=== PATIENT | female | born 1965 | race Caucasian/White ===

== ENCOUNTER 2023-01-26 10:28 | Outpatient (CLI) | payer OTHER, SELFPAY | END 2023-01-26 10:29 | disposition home or self-care (01) | LOC: NFLDREF 01-28 12:05 | PROVIDERS: PCP Family Medicine; Referring Provider Family Medicine; Visit Provider Obstetrics & Gynecology | DX: N39.0 Urinary tract infection, site not specified (principal) | CPT/HCPCS: 87086 ==

== ENCOUNTER 2023-04-13 09:51 | Day surgery (SDC) | payer OTHER, SELFPAY ==
[2023-04-13] VITALS (20 sets, daily range): BP systolic 95–134; BP diastolic 61–90; PULSE 44–90; RESP 14–20; TEMP 36.4–37.6; O2SAT 95–100; BMI 25.4
--- OUTSIDE RECORDS SUMMARY | 2023-04-13 09:58 | XMS_ITS | Clinical Summary ---
Author Name Unknown Organization [facility] Address [place], [place] [address] Care Team Providers Care Crane Manager Name Role Phone Sandrine Presley MD Primary Care Provider [phone] Allergies Active Allergy Reactions Criticality Noted Date Comments Apple (Fruit) Anaphylaxis High 09/09/2017 Soler Anaphylaxis High 09/09/2017 Medications Medication Sig Dispensed Refills Start Date End Date Status loratadine (CLARITIN) 10 mg tabletIndications:Se asonal allergic rhinitis due to pollen Take 1 tablet by mouth once daily 90 Tablet 0 08/04/2021 Active albuterol HFA (PRO-AIR; VENTOLIN; PROVENTIL) 90 mcg/actuation inhalerIndications:P ost-viral reactive airway disease Inhale 2 Puffs by mouth 4 times daily if needed for Shortness Of Breath. 1 Each 3 12/22/2022 Active traZODone (DESYREL) 50 mg tabletIndications:Sl eep pattern disturbance Take 1 Tablet (50 mg) by mouth at bedtime if needed for Sleep. 100 Tablet 3 12/22/2022 Active Active Problems Problem Noted Date Diagnosed Date Acquired absence of both cervix and uterus 12/22 Overview: Total hysterectomy for AUB and fibroids. Neck injury, subsequent encounter 10/01/2021 Lower back injury 10/01/2021 Colon polyp 05/19/2020 Overview: Colonoscopy 04/2020 polyp, repeat in 5 years Family history of colon cancer 05/19/2020 Overview: Colonoscopy 04/2020 polyp, repeat in 5 years Sleep pattern disturbance 11/28/2019 Seasonal allergic rhinitis due to pollen 020 Menorrhagia 05/17/2014 Deep vein thrombophlebitis of right leg 04/10/19 15 Resolved Problems Problem Noted Date Diagnosed Date Resolved Date Anticoagulation monitoring, INR range 2-3 04/11/2014 11/07/2014 Encounters Date Type Department Care Team Description 03/30/2023 11:45 AM SHALE PLANER OPERATOR Preop Visit [facility] [address] [facility] [place] [address] Kristina Talbert MD Pre-Op Exam (04/13 prolapse surgery, Dr. Gallardo at [facility]) 03/30/2023 Travel 01/17/2023 Telephone [facility] [address] [place] [address] Sandrine Presley MD Questions (Call Wanted ) from Last 3 Months Immunizations Name Administration Dates Next Due Influenza, IIV4 12/13/2017 Influenza, IIV4 (=>6mos) MDV 12/19/2018 Td (Age >=7 Years) 10/13/2004 Tdap 09/09/2017 Zoster (Shingrix-RZV, recombinant) 05/21/2022, Family History Medical History Relation Name Comments Good Health Brother Cancer-colon Father Other Maternal Grandfather Cancer-breast Maternal Grandmother COPD Mother Hypertension Mother Good Health Sister Blood Disease No Family History Relation Name Status Comments Brother Father (Age 58) of co radha cancer Maternal Grandfather Maternal Grandmother Mother Alive Sister Social History Tobacco Use Types Packs/Day Years Used Date Smoking Tobacco: Never Passive Smoke Exposure: Never Smokeless Tobacco: Never Tobacco Cessation:Counseling Given: Not Answered Alcohol Use Standard Drinks/Week Comments Not Currently 2 (1 standard drink = 0.6 oz pur e alcohol) twice a week PHQ-2 Answer Date Recorded PHQ-2 TOTAL SCORE 0 12/22/2022 Social Connections Answer Date Recorded Frequency of Communication with Friends and Fami ly Not on file 03/28/2021 Financial Resource Strain Answer Date R ecorded Difficulty of Paying Living Expenses Not on file 03/28/2021 Difficulty of Paying Living Expenses Not on file 03/28/2021 Sex and Gender Information Value Date Recorded Sex Assigned at Not on file Gender Identity Not on file Sexual Orientation Not on file Obstetrics History Para Term AB IAB SAB Ectopic Multiple Livin g Live Births 4 4 4 4 Date Outcome GA Total Labor Labor/2nd/3rd Weight Sex Delivery Anes PTL Flavia A1 A5 Name Cl in Term Term Term Term Comments No complications, all full t erm, vaginal deliveries Last Filed Vital Signs Vital Sign Reading Time Taken Comments Blood Pressure 120/82 03/30/2023 12:01 PM SHALE PLANER OPERATOR Pulse 74 03/30/2023 12:01 PM SHALE PLANER OPERATOR Temperature 36.6 ??C (97.8 ??F) 10/22/2021 9:37 AM CD T Respiratory Rate 18 10/22/2021 9:37 AM CDT Oxygen Saturation 97% 03/30/2023 12:01 PM SHALE PLANER OPERATOR Inhaled Oxygen Concentration - - Weight 67.3 kg (148 lb 6.4 oz) 03/30/2023 12:01 PM SHALE PLANER OPERATOR Height 163.8 cm (5' 4.5) 03/30/2023 12:01 PM CS T Body Mass Index 25.08 03/30/2023 12:01 PM SHALE PLANER OPERATOR Plan of Treatment Health Maintenance Due Date Last Done Comments COVID-19 vaccine series (#1) 1965 Pneumococcal series for age 6-64 (1 of 2 - PCV) 1971 HIV for age 15-65 01/31/1980 Influenza for age 50-64 11/26/2022 12/19/2018, 12/13 Depression screening for age 12+ 12/23/2023 12/22/2022, 12/21/2021, 12/17/2020, Additional history exists Mammogram for age 45-75 12/23/2023 12/23/19 23, 12/21/2021, 12/17/2020, Additional history exists BMI (ht and wt on same day) for age 18+ 03/30/2024 03/30/2023, 12/22/2022, 12/21/2021, Additional history exists Colonoscopy through age 75 05/16/2025 05/16/2020, Lipids for age 45-75 12/21/2026 12/21/2021, 11/22/2018, 11/06/2014 Tetanus booster 09/10/2027 09/09/2017, 10/13/2004 Fecal testing non-DNA (FIT,FOBT,iFOBT) for age 45-75 Discontinued 09/01/2016 Tdap Completed 09/09/2017 Hepatitis C screening for ag e 18-79 Completed 11/22/2018 Zoster (shingles) series for age 50+ Completed 05/21/2022, 12/21/2021 Care Teams Crane Manager Relationship Specialty Start Date End Date Sandrine Presley MD [address] [place] [address] PCP - General Family Practice 07/28/22
[2023-04-13] MEDS: LACTATED RINGERS 1000 ML 1,000 ML 100 ML IV ×2 (10:05→13:22)
[2023-04-13 10:29] LABS: Hemoglobin* 13.5 gm/dL (12.0-16.0)
[2023-04-13 10:52] LABS: Creatinine* 0.8 mg/dL (0.5-1.5); Est. Creatinine Clearance* 66.19; Estimated Glomerular Filt Rate 85 ml/min
[2023-04-13] MEDS: CEFAZOLIN 2 GM INJ IVP (11:25)
[2023-04-13] MEDS: ESTROGENS, CONJUGATED VAGINAL 0.625 MG/G CREAM 1 APPLIC VAGINAL (12:14)
--- NOTE | 2023-04-13 12:45 | W.ANESCHARGE ---
Anesthesia Charges Start Date/Time Anesthesia Start Date: 04/13/23 Anesthesia Start Time: 11:00 Stop Date/Time Anesthesia Stop Date: 04/13/23 Anesthesia Stop Time: 13:42
--- NOTE | 2023-04-13 13:43 | W.ANESCHARGE ---
Anesthesia Charges Start Date/Time Anesthesia Start Date: 04/13/23 Anesthesia Start Time: 11:00 Stop Date/Time Anesthesia Stop Date: 04/13/23 Anesthesia Stop Time: 13:42
--- NOTE | 2023-04-13 14:05 | PC.NURSE ---
Spoke with Marco Rollins, PUBLICATION SPECIALIST review vitals, pt is sinus bradycardic, PUBLICATION SPECIALIST approved for patient to continue to recover on the Med Surg floor.
--- NOTE | 2023-04-13 14:26 | W.PM.H&PU ---
History & Physical Update History & Physical Update H&P Reviewed and patient assessed: No changes noted
--- NOTE | 2023-04-13 14:34 | P.GYNPRC_ITS ---
Procedure Note Time Seen by Provider: 14:34 Date of procedure: 04/13/23 Procedure Description: Preoperative diagnosis: Beatrice is 58-year-old 4 para 4004 with pelvic organ prolapse (stage 3 anterior compartment and stage 2 posterior compartment) who desires surgical treatment. Postoperative diagnosis: Same Procedure: (1) Anterior colporrhaphy (2) Posterior colporrhaphy (3) Perineorrhaphy (4) Cystoscopy Anesthesia: Spinal, MAC, local Surgeon: Mis Gallardo MD ob gyn physician assistant: Faith Unger MD EBL: 20 mL IV Fluid: 1,200 mL Urine output: 1,000 mL Drains: Harry to gravity: Clear urine at the end of the procedure. Vaginal pack in place Specimen: None Findings: On exam under anesthesia: Prolapse: Grade 3 cystocele and grade 2 rectocele primarily within the vaginal canal. The perineal body is not well supported. Procedure: Beatrice was taken to the operating room where spinal anesthesia and IV sedation was found be adequate. She is placed in the dorsal lithotomy position and an exam under anesthesia performed with the findings stated above. She was then prepped and draped in a sterile manner. A Harry catheter was placed. A weighted speculum was placed in the posterior aspect of the vaginal introitus. Attention was turned to performing the anterior repair. Allis clamp was placed in the midline of the anterior vaginal mucosa approximately 1 cm under the urethral meatus. Two additional Allis clamps were placed 1 just superior to each apex of the vaginal cuff repair. 1% lidocaine with epinephrine was injected between the 2 Allis clamps just above the cuff and in the midline to the Allis that was placed below the urethral meatus. A horizontal incision was then made between the 2 Allis clamps just above the vaginal cuff. Vaginal mucosa was undermined with the Metzenbaum scissors. The excess mucosa was grasped with a combination of Aaron and Allis clamps. The underlying fascial tissue was mobilized from the vaginal mucosa using an open Ray-Sarika sponge. 2-0 Vicryl interrupted sutures were used to grasp the lateral vaginal fascial tissue and tied together in the midline. The excess vaginal mucosa was then removed and the remaining vertical incision was re-approximated using 2-0 Vicryl in a running locked manner. Excellent hemostasis verified. Attention was turned towards performing the posterior repair. An Allis clamp was placed at the apex of the posterior repair in the midline of the vaginal mucosa posteriorly, 2 Allis clamps were placed in the posterior introitus approximately 1 cm within the introitus. 1% lidocaine with epinephrine was instilled between the 2 horizontal clamps and in the midline to the apical clamp. A horizontal i ncision was made between the 2 most proximal Allis clamps and a horizontal midline incision was made from the apex clamp to the midline horizontal incision. The vaginal mucosa was then undermined with Metzenbaum scissors and the vaginal fascia was mobilized from the mucosa using a Ray-Sarika sponge. The lateral vaginal fascia was then reapproximated using 2 0 Vicryl interrupted sutures. The excess mucosal tissue was removed and the remaining incision reapproximated using 3-0 Vicryl in a running locked manner. Lastly, attention was turned towards perineorrhaphy. 1% lidocaine with epinephrine was instilled and a ilana shape vaginal mucosa was excised starting from the hymenal ring to about 1-2 cm of the perineum. The superficial perineal muscles were reapproximated with 2-0 Vicryl interrupted. The perineal skin was closed with running subcuticular sutures of 2-0 Vicryl. Hemostasis verified. A diagnostic cystoscopy was performed using normal saline as the insufflation medium. The dome of the bladder was noted to be without injury and no evidence of any sutures from the vaginal cuff causing injury. Normal urine flow was noted through both ureteral orifices. Rectal exam was performed and no sutures or defect were palpated and the procedure was considered terminated at this time. A vaginal pack with Premarin cream was placed in the vaginal canal to be removed tomorrow morning by the physician. Sponge, lap and instrument counts were correct x2 at the end of the procedure and the patient was taken to the recovery room in stable condition. Prior to the procedure the patient received: 2 g Ancef for antibiotic prophylaxis.
[2023-04-13] MEDS: OXYCODONE 5 MG TABLET PO ×2 (15:27→20:27)
[2023-04-13] MEDS: HYDROmorphone 0.5 mg/0.5 ml inj 0.2 MG IVP ×2 (16:17→23:03)
[2023-04-13] MEDS: KETOROLAC 15 MG/ML inj IVP (16:17)
--- NOTE | 2023-04-13 19:03 | PC.NURSE ---
Pt arrived to floor from surgery at 1416. Pt awake but drowsy. Pt able to move toes. Pt had ray catheter in place. Pt had complaints of pain ranging from 0-10; see EMAR for intervention. VSS; Pt had some bradycardia when first arriving from surgery. Pt advanced to regular diet and tolerated well; no complaints of nausea or vomiting. Pt has no been up to chair yet this shift.?
[2023-04-13] MEDS: hydrOXYzine pamoate 25 MG CAPSULE PO (21:30)
[2023-04-13] MEDS: IBUPROFEN 600 MG TABLET PO (22:07)
[2023-04-13] MEDS: ACETAMINOPHEN 325 MG TABLET 650 MG PO (22:07)
--- NOTE | 2023-04-13 22:11 | PC.NURSE ---
Primary nurse Lizzy reports patient's pain is 7/10, tearful. Updated Dr. Du via telephone on pain, status, u/o, and VS. Order obtained for hydromorphone x1. Nurse will give Tylenol/Ibuprofen at this time as well. Patient updated, comfortable with this plan.
[2023-04-14] MEDS: OXYCODONE 5 MG TABLET PO ×3 (04:14→15:12)
[2023-04-14] MEDS: ACETAMINOPHEN 325 MG TABLET 650 MG PO (04:14)
[2023-04-14 04:15] VITALS: BP 105/74; PULSE 81; RESP 16; TEMP 36.6; O2SAT 94
[2023-04-14] MEDS: IBUPROFEN 600 MG TABLET PO ×2 (06:32→13:06)
[2023-04-14] MEDS: hydrOXYzine pamoate 25 MG CAPSULE PO (06:32)
[2023-04-14 06:59] LABS: Hemoglobin* 13.1 gm/dL (12.0-16.0)
[2023-04-14 07:02] LABS: Creatinine* 0.9 mg/dL (0.5-1.5); Est. Creatinine Clearance* 58.84; Estimated Glomerular Filt Rate 74 ml/min
--- NOTE | 2023-04-14 08:43 | PC.NURSE ---
Patient alert and oriented. Patient has remained in bed and not ambulated. Small amount of vaginal drainage noted. Given PRN pain medications for c/o headache and pain rated 7/10. Oxycodone not effective. New one time order for IVP dilaudid administered and was effective. Per Dr Gallardo Tylenol and Vistaril given at 0630 prior to procedure.
--- NOTE | 2023-04-14 08:45 | PM.GYNDS1 ---
DS: Providers Provider Time Seen by Provider: 07:00 Date Seen: 04/14/23 Primary care physician: Sandrine Presley MD Attending Physician on discharge: Mis Gallardo MD Date of Discharge: 04/14/23 FINANCE ASSOCIATE-Discharge Summary Hospital Course Hospital Course Narrative: Patient is a 58 year old admitted on 04/13/2023 for scheduled surgery. She underwent an anterior colporrhaphy, posterior colporrhaphy, perineorrhaphy, and cystoscopy. Indication for surgery: Pelvic organ prolapse (stage III anterior compartment and stage II posterior compartment prolapse). Intraoperative findings were notable for: Prolapse: Grade 3 cystocele and grade 2 rectocele primarily within the vaginal canal. The perineal body is not well supported. She had an uncomplicated surgery. Postoperative course has been uneventful. Vitals have been stable. She has remained afebrile. Today, on postoperative day 1, she reports the pain is well controlled. She has been able to ambulate Without difficulty. She is tolerating regular diet. She is passing flatus. Ray catheter and vaginal packing has been removed. She passed her voiding trial without difficulty. She was stable and appropriate for discharge on postop day 1. Time Spent with Patient Time attestation: Total time spent providing and/or coordinating discharge services: Time spent: Less than 30 minutes FINANCE ASSOCIATE - Exam Physical Exam: Vital signs: Temp Pulse Resp BP Pulse Ox O2 Del Method 97.8 F 81 16 105/74 94 Room Air 04/14/23 04:15 04/14/23 04:15 04/14/23 04:15 04/14/23 04:15 04/14/23 04:15 04/14/23 04:15 Narrative: Physical exam: General: No acute distress Psych: Alert and oriented x3, full affect HEENT: Normocephalic, atraumatic, oropharynx benign Heart: Regular rate and rhythm, no murmur rub or gallop Lungs: Clear to auscultation bilaterally Abdomen: Normoactive bowel sounds, soft, no tenderness, rebound, or guarding, no masses Skin: No lesions or rashes Lower extremities: No edema or erythema Pelvic exam: Vaginal packing removed. Scant blood on pad. FINANCE ASSOCIATE - DS: Data Data Completed and Pending Labs on day of discharge: Labs from last 24 hours 04/14/23 04/13/23 06:34 10:20 Hgb 13.1 13.5 Creatinine 0.9 0.8 Estimated Creat Clear 58.84 66.19 Estimated GFR 74 85 Blood Type AB Positive Antibody Screen NEGATIVE Procedures Procedures: Procedures Operation Date: 04/13/23 11:20 Actual Procedure Side Surgeon p Anterior Posterior Repair, Perineorrhaphy, Cystoscopy Mis Gallardo MD Discharge Plan Discharge Disposition: Home, Self-Care Discharging Surgeon: Mis Gallardo Follow-Up Appointment: 2 weeks postop visit Prescriptions: New ibuprofen 600 mg Tablet 600 mg PO Q6H 30 Days Qty: 120 0RF oxycodone 5 mg Tablet 5 mg PO Q6H PRN (Reason: Moderate Pain) 14 Days Qty: 20 0RF acetaminophen [Tylenol Extra Strength] 500 mg tablet 1,000 mg PO Q6H PRN30 Days Qty: 120 0RF sennosides [Senna Laxative] 8.6 mg tablet 8.6 mg PO DAILY 14 Days Qty: 30 0RF polyethylene glycol 3350 [Miralax] 17 gram/dose powder 17 g PO DAILY Qty: 119 0RF Continued trazodone 50 mg tablet 50 mg PO HS PRN loratadine [Claritin] 10 mg tablet 10 mg PO DAILY albuterol sulfate 90 mcg/actuation HFA aerosol inhaler 2 puff INHALATION QID PRN (Reason: dyspnea) Activity Level: Activity as Tolerated Activity Detail: Pelvic rest x 6-8 weeks (until cleared by surgeon) Discharge Diet: Regular Patient Instructions: Acetaminophen (By mouth), Ibuprofen (By mouth), Oxycodone, Rapid Release (By mouth), Polyethylene Glycol 3350/Electrolytes (By mouth), Senna (By mouth), Rectocele (GEN), Cystocele (DC), Surgical Site Infections (DC) Additional Instructions: VAGINAL SURGERY POSTOPERATIVE INSTRUCTIONS ACTIVITY No heavy lifting/pushing/pulling for 4-6 weeks. Do not lift anything more than about 15 lbs (such as laundry, groceries, children, pets), vacuum, push heavy doors or grocery carts, etc. You may climb stairs as tolerated. Do not put anything in the vagina for 6-8 weeks after surgery unless otherwise instructed by your doctor (including tampons, douching, sexual intercourse, etc). No driving for about 2 weeks after surgery, while you are taking narcotic pain medication, or until you feel that you are ready. Practice checking your blind spot and stepping hard on the brake. Avoid sitting or lying in bed for more than 2 hours at a time while you are awake to reduce your risk of blood clots. You may return to work when directed by your physician. Please contact your doctor if you need any return to work letters or medical leave paperwork to be completed. WOUND CARE You will have incisions inside your vagina. There will be dissolvable stitches that do not need to be removed. Shower daily after surgery. No tub baths until wound is completely healed. Wash your hands frequently, especially before touching your incision, changing any dressings, after using the restroom, and before eating. PAIN MANAGEMENT Take your oral pain medication as needed. You should be taking Ibuprofen 600mg every 6 hours with 1 g of Tylenol every 6 hours. You can take these together every six hours or alternate them every 3 hours. You should then take the oxycodone as needed if you have breakthrough pain on top of the Tylenol and Ibuprofen. Some pain medications can cause constipation so you should take a stool softener (i.e. colace/senna) while you are on these medications. You may also take milk of magnesia or Miralax for constipation. WHAT TO EXPECT AT HOME Recovery from surgery is generally 2-4 weeks, but sometimes longer for more strenuous activity. It is normal to be very tired during this time. It is normal to have some drainage or a small amount of vaginal bleeding after surgery which may last up to 6 weeks. You may go home with a ray catheter in your bladder. If so, you will need to follow up for a nurse visit in 7-10 days for removal. You will most likely experience gas pain, abdominal swelling, or shoulder pain for 24-72 hours after surgery. A warm shower, heating pad, and/or walking may help. WHEN TO CALL YOUR DOCTOR : Fever (>100.4?F or 38.0?C) or chills. Incision problems such as redness, warmth, swelling, or foul-smelling drainage. Severe nausea or persistent vomiting. Bright red vaginal bleeding (soaking >1 pad/hour) or foul-smelling vaginal drainage. Severe pain not relieved with pain medication. Pain and swelling in your legs, especially if it is only on one side and not the other. Pain with urination, cloudy urine, or foul-smelling urine. Or if you have any other problems or questions. CALL 911 OR GO TO THE EMERGENCY ROOM IF YOU HAVE: Any shortness of breath, difficulty breathing, or chest pain. Forms: Work/School Release Follow-up: Sandrine Presley MD [Primary Care Provider] - Mis Gallardo MD [Staff Physician] - 04/29/23 8:45 am ([facility] for follow-up. Second appointment on June 01, 2023 @ 9:00am. ) Discharge Orders: Discharge Order (Routine); Ordered 04/14/23 Ordered By: Mis Gallardo
[2023-04-14 09:00] VITALS: PULSE 80; RESP 16
[2023-04-14] MEDS: ACETAMINOPHEN 500 MG TABLET 1000 MG PO (12:11)
[2023-04-14 12:16] VITALS: BP 127/80; PULSE 70; RESP 16; TEMP 37; O2SAT 98
--- NOTE | 2023-04-14 20:31 | PC.NURSE ---
Discussed discharge informations with patient and all questions were answered and forms were signed. IV taken out to patient's left wrist. All belongings were sent with. Pt escorted to front entrance via nursing clinical director, accompanied by her who is her ride home from [facility].
== END 2023-04-14 16:10 | disposition home or self-care (01) ==
LOC: OR 09:52 → MEDSURG 09:56
PROVIDERS: PCP Family Medicine; Visit Provider Obstetrics & Gynecology
PROC: (CPT 57260; principal; 2023-04-13 11:15)
DX: N81.3 Complete uterovaginal prolapse (principal)
CPT/HCPCS: 57260; 00940; 36415; 82565; 85018; 86850; 86900; 86901; A9270; J0461; J0690; J1170; J1885; J1940; J2250; J2405; J2704; J3010; J7120

== ENCOUNTER 2023-04-29 09:13 | Outpatient (CLI) | payer OTHER, SELFPAY ==
--- OUTSIDE RECORDS SUMMARY | 2023-04-29 09:18 | XMS_ITS | Clinical Summary ---
Author Name Unknown Organization [facility] Address [place], [place] [address] Care Team Providers Care Head Setter Name Role Phone Sandrine Presley MD Primary Care Provider [phone] Allergies Active Allergy Reactions Criticality Noted Date [...] Department Care Team Description 03/30/2023 11:45 AM BATCH MAKER Preop Visit [address] [phone] Kristina Talbert MD Pre-Op Exam (04/13 prolapse surgery, Dr. Gallardo at [facility]) 03/30/2023 Travel from Last 3 Months Immunizations Name Administration [...] Comments Blood Pressure 120/82 03/30/2023 12:01 PM BATCH MAKER Pulse 74 03/30/2023 12:01 PM BATCH MAKER Temperature 36.6 ??C (97.8 ??F) 10/22/2021 9:37 AM CD T Respiratory Rate 18 10/22/2021 9:37 AM CDT Oxygen Saturation 97% 03/30/2023 12:01 PM BATCH MAKER Inhaled Oxygen Concentration - - Weight 67.3 kg (148 lb 6.4 oz) 03/30/2023 12:01 PM BATCH MAKER Height 163.8 cm (5' 4.5) 03/30/2023 12:01 PM CS T Body Mass Index 25.08 03/30/2023 12:01 PM BATCH MAKER Plan of Treatment Health Maintenance Due Date [...] age 50+ Completed 05/21/2022, 12/21/2021 Care Teams Head Setter Relationship Specialty Start Date End Date Sandrine Presley MD [address] [place] [address] PCP - General Family Practice 07/28/22
[2023-04-29 13:32] LABS: Bacterial Vaginosis* Not Detected (No Detected); Candida glab/krus Not Detected (No Detected); Candida species Not Detected (No Detected); Trichomonas vaginalis Not Detected (No Detected)
== END 2023-04-29 09:14 | disposition home or self-care (01) ==
PROVIDERS: PCP Family Medicine; Visit Provider Obstetrics & Gynecology
DX: N89.8 Other specified noninflammatory disorders of vagina (principal)
CPT/HCPCS: 81513; 87070; 87186; 87481; 87661